=== PATIENT | male | born 1955 | race Two or more races ===

== ENCOUNTER 2016-04-11 05:51 | Day surgery (SDC) | payer BC ==
[2016-04-10 10:13] VITALS: BMI 30.0
[2016-04-11] VITALS (10 sets, daily range): BP systolic 97–156; BP diastolic 68–79; PULSE 60–81; RESP 13–23; Ht 165.1 cm; Wt 82.3 kg
[~2016-04-11] VITALS: Ht 165.1 cm; Wt 82.3 kg
[~2016-04-11 05:51] MED LIST: ATEN-51 PO
[2016-04-11] MEDS ORDERED: SOD CHLORIDE 0.9% 1,000 ML IV SCH (06:00)
[2016-04-11] MEDS ORDERED: CEFAZOLIN 2 GM/50 ML (PMX) 50 ML IVPB ONE (06:00)
[2016-04-11 06:59] LABS: BASOPHILS % 0.5 % (0.0-2.0); EOSINOPHILS # 0.1 10^3/ul (0.0-0.5); EOSINOPHILS % 2.4 % (0.0-7.0); HEMATOCRIT 42.2 % (42.0-52.0); HEMOGLOBIN 14.6 g/dl (14.0-18.0); LYMPHOCYTES # 1.4 10^3/ul (0.8-2.9); LYMPHOCYTES % 28.2 % (15.0-51.0); MEAN CORPUSCULAR HEMOGLOBIN 31.8 pg (29.0-33.0); MEAN CORPUSCULAR HGB CONC 34.6 g/dl (32.0-37.0); MEAN CORPUSCULAR VOLUME 91.9 fl (82.0-101.0); MEAN PLATELET VOLUME 9.1 fl (7.4-10.4); MONOCYTE # 0.3 10^3/ul (0.3-0.9); MONOCYTES % 6.3 % (0.0-11.0); NEUTROPHIL # 3.1 10^3/ul (1.6-7.5); NEUTROPHILS % 62.6 % (39.0-77.0); PLATELET COUNT 167 10^3/UL (140-440); RED BLOOD COUNT 4.59 10^6/ul (4.70-6.10); UNCORRECTED WBC 4.9 10^3/ul (4.8-10.8); WHITE BLOOD COUNT 4.9 10^3/ul (4.8-10.8)
[2016-04-11] MEDS ORDERED: CEFAZOLIN 1 GM INJ ONE (07:00)
[2016-04-11 07:01] LABS: INR 0.94; PROTIME 12.6 Sec (12.2-14.2)
[2016-04-11 07:02] LABS: PARTIAL THROMBOPLASTIN TIME 30.1 Sec (25.0-35.0)
[2016-04-11 07:09] LABS: CREATININE 0.96 mg/dl (0.61-1.24); POTASSIUM 3.9 mmol/L (3.5-5.1)
[2016-04-11] MEDS ORDERED: POLYMYXIN/BACITRACIN 1L IRRIG ONE (07:57)
[2016-04-11] MEDS ORDERED: BUPIVACAINE 0.25% (MPF) 30 ML INJ ONE (07:57)
[2016-04-11 08:24] LABS: CONDITION 1
[2016-04-11] MEDS ORDERED: FENTAnyl 50 MCG/ML VIAL ONE (08:27)
[2016-04-11] MEDS ORDERED: MIDAZOLAM 1 MG/ML 2 ML INJ ONE (08:27)
[2016-04-11] MEDS ORDERED: morphine 10 MG INJ ONE (09:02)
[2016-04-11] MEDS ORDERED: ROCURONIUM 50 MG INJ ONE (09:11)
[2016-04-11] MEDS ORDERED: PROPOFOL 20 ML ONE (09:11)
[2016-04-11] MEDS ORDERED: ONDANSETRON 4 MG INJ ONE (09:11)
[2016-04-11] MEDS ORDERED: LIDOCAINE 2% (SDV) 5 ML INJ ONE (09:11)
[2016-04-11] MEDS ORDERED: GLYCOPYRROLATE 1 MG INJ ONE (09:13)
[2016-04-11] MEDS ORDERED: NEOSTIGMINE 3 MG/3 ML SYRINGE ONE (09:13)
--- NOTE | 2016-04-11 09:24 | RADRPT ---
PROCEDURE: XR Chest. CLINICAL INDICATION: Preoperative for hernia repair. TECHNIQUE: Single frontal view. COMPARISON: None. FINDINGS: The lungs are clear. The heart size is normal. There is no pleural effusion. There is no pneumothorax. IMPRESSION: 1. Normal chest radiograph. RPTAT: QQ .Nicola Banks MD, MD Date Time Electronically viewed and signed by .Nicola Banks MD, on 04/11/2016 09:24 .R/
[2016-04-11] MEDS ORDERED: LABETALOL HCL 20MG INJ IV PRN (09:30)
[2016-04-11] MEDS ORDERED: FENTAnyl 50 MCG/ML VIAL IV PRN (09:30)
[2016-04-11] MEDS ORDERED: hydrALAzine 20 MG INJ IV PRN (09:30)
[2016-04-11] MEDS ORDERED: morphine (1 MG/ML) 10ML SYRINGE IV PRN ×2 (09:30)
[2016-04-11] MEDS ORDERED: HYDROCODONE/APAP (5/325) TAB PO ONE (09:30)
[2016-04-11] MEDS ORDERED: ONDANSETRON 4 MG INJ IV PRN (09:30)
[2016-04-11] MEDS ORDERED: DIPHENHYDRAMINE 50 MG INJ IV PRN (09:30)
[2016-04-11] MEDS ORDERED: MEPERIDINE 25 MG INJ IV PRN (09:30)
--- NOTE | 2016-04-11 09:41 | OPR ---
DATE OF OPERATION: 04/11/2016 INDICATION: This is a 60-year-old male with incarcerated ventral hernia. He requests surgical repa ir. Risks, alternatives, benefits, and personnel were discussed with the patient. Patient expresse d understanding and consents to the operation. PREOPERATIVE DIAGNOSIS: Incarcerated ventral hernia. POSTOPERATIVE DIAGNOSIS: Incarcerated ventral hernia. OPERATION PERFORMED: Laparoscopic incarcerated ventral hernia repair with 10 x [address] mesh. SURGEON: Clifford Aden MD SPECIMEN: None. COMPLICATIONS: None. ANESTHESIA: General. PROCEDURE: The patient was taken to the OR and prepped and draped in the usual sterile fashion. Morales rgical timeout was performed. IV antibiotics were given. Left upper quadrant 5 mm transverse incis ion is made with a 15 blade. Using a 5 mm optical trocar, optical entry was performed. Pneumoperit oneum was established. Left flank 12 mm optical trocar and left lower quadrant 5 mm optical trocars are placed under direct visualization. Upon initial inspection, there was incarcerated contents to the ventral hernia. This was resected and removed with laparoscopic Harmonic. There was good hemo stasis. The hernia defect was closed with interrupted #1 Prolene with Endoclose and laparoscopic te chniques. Onlay mesh was secured in place with a SecureStrap with approximately 4 to 5 cm of covera ge in all directions. There was good hemostasis. Ports were removed under direct visualization. S kin was closed using skin jennifer. Local anesthesia was injected. Dry dressings were applied. Dictated By: CLIFFORD GIRARD/JOHN Conf#: [id number] DID#: [id number]
--- NOTE | 2016-04-11 18:44 | RADRPT ---
Vent Rate: 63 bpm RR Interval: 0 msec [place] Interval: 174 msec QRS Duration: 110 msec QT Interval: 424 msec QTC Interval: 433 msec P-R-T [place]: 40 - -34 - 19 degrees Normal sinus rhythm Left axis deviation Abnormal ECG Electronically Signed By: Unruly Rodriguez [id number]
== END 2016-04-11 11:50 | disposition home or self-care (01) ==
LOC: SDS 05:51
PROVIDERS: ATTEND Surgery
DX: K43.6 Other and unspecified ventral hernia with obstruction, without gangrene (principal); I10 Essential (primary) hypertension; E66.9 Obesity, unspecified; Z68.30 Body mass index [BMI] 30.0-30.9, adult
CPT/HCPCS: 49653; 71010; 80048; 85025; 85610; 85730; 93005; C1781; J0690; J2175; J2250; J2270; J2405; J2710; J3010; Z7512; Z7610